=== PATIENT | female | born 1940 | race Caucasian/White ===

== ENCOUNTER 2021-09-01 17:43 | Emergency (ER) | payer OTHER, SELFPAY ==
[~2021-09-01] VITALS: Ht 154.9 cm; Wt 71.7 kg
[~2021-09-01 17:43] MED LIST: DIGO-31 PO; MULTAQ PO; PANT40TA45 PO; POTA20TA34 PO; RANI150T8 PO; SOTOLOL PO; TRIA1CAP2 PO; WARF7.5T49 PO
[2021-09-01 18:03] VITALS: BP_SYST 101
--- NOTE | 2021-09-01 18:06 | NUR ---
Patient triaged and placed in tent area. VSS and patient appears in no acute distress at this time. Accompanied by daughter, awaiting available bed, and MD notified of need for MSE.
[2021-09-01] MEDS ORDERED: ONDANSETRON HCL 4 MG/2 ML VIAL IVP ONE ×2 (18:45→21:45)
[2021-09-01] MEDS ORDERED: NACL 0.9% 1,000 ML IV ONE (18:45)
[2021-09-01 19:47] LABS: BASOPHILS % (AUTO) 0.5 % (0.0-2.0); EOSINOPHILS # (AUTO) 0.1 K/uL (0.0-0.4); EOSINOPHILS % (AUTO) 1.9 % (0.0-4.0); HEMATOCRIT 44.2 % (36-48); HEMOGLOBIN 14.9 g/dL (12.0-16.0); LYMPHOCYTES # (AUTO) 1.1 K/uL (1.0-5.5); LYMPHOCYTES % (AUTO) 16.5 % (20.5-51.5); MEAN CORPUSCULAR HEMOGLOBIN 32 pg (27-31); MEAN CORPUSCULAR HGB CONC 34 % (32-36); MEAN CORPUSCULAR VOLUME 94 fL (79.0-98.0); MONOCYTES # (AUTO) 0.6 K/uL (0.0-1.0); MONOCYTES % (AUTO) 8.7 % (1.7-9.3); NEUTROPHILS # (AUTO) 4.9 K/uL (1.8-7.7); NEUTROPHILS % (AUTO) 72.4 % (40.0-70.0); PLATELET COUNT (AUTO) 131 K/uL (130-430); WHITE BLOOD COUNT (AUTO) 6.8 K/uL (4.8-10.8)
--- NOTE | 2021-09-01 19:58 | NUR ---
urine collected and sent to lab
[2021-09-01 19:59] LABS: ANION GAP 9 (5-15); CALCIUM 9.6 mg/dL (8.4-11.0); CHLORIDE 100 mmol/L (98-107); CREATININE 1.07 mg/dL (0.55-1.30); GLUCOSE 186 mg/dL (70-99); POTASSIUM 4.1 mmol/L (3.5-5.1); SODIUM SERUM 135 mmol/L (136-145); UREA NITROGEN, BLOOD 29 mg/dL (8-21)
--- NOTE | 2021-09-01 20:00 | NUR ---
Patient to bed 2 for evaluation. Hooked to senior materials planner for close monitoring
[2021-09-01 20:02] LABS: ALANINE AMINOTRANSFERASE 55 U/L (12-78); ALBUMIN 3.8 g/dL (3.4-4.8); ASPARTATE AMINOTRANSFERASE 56 U/L (10-37); TOTAL BILIRUBIN 0.6 mg/dL (0.0-1.0)
[2021-09-01] MEDS ORDERED: IOHEXOL 350 mgI/mL, 150 ML INFUS..BTL IV ONE (20:08)
--- NOTE | 2021-09-01 20:15 | NUR ---
MD DONATO in to see patient
--- NOTE | 2021-09-01 20:20 | NUR ---
# 20 gauge angiocath placed to RH. Use of asceptic technique. Opsite placed over site. Blood return noted. Blood for lab drawn from site. Flushed with 10 cc of normal saline. No evidence of infiltration noted. Patient tolerated well.
[2021-09-01] MEDS ORDERED: DEXAMETHASONE SOD PHOSPHATE 4 MG/ML VIAL IVP ONE (20:45)
[2021-09-01] MEDS ORDERED: DIPHENHYDRAMINE INJ 50 MG/ML VIAL IVP ONE (20:45)
--- NOTE | 2021-09-01 20:50 | NUR ---
# 20 gauge angiocath placed to LEFT FA. Use of asceptic technique. Opsite placed over site. Blood return noted. Flushed with 10 cc of normal saline. No evidence of infiltration noted. Patient tolerated well.
[2021-09-01] MEDS ORDERED: PROCHLORPERAZINE EDISYLATE 10 MG/2 ML VIAL IVP ONE (21:45)
--- NOTE | 2021-09-01 23:00 | NUR ---
patient is in CT
--- NOTE | 2021-09-01 23:26 | NUR ---
Patient to be transferred to [facility] . Is being transferred due to higher level of care. Receiving facility has accepting physician and available space. ER physician has signed transfer form. Patient or responsible republican has agreed to transfer and signed form. Patient belongings inventoried and will be sent with patient. Copy of nursing notes, lab reports, EKG, Physicians Orders and X-rays to be sent with patient. Report called to Laron Sarkar at receiving facility. Receiving physician is Dr. Morales. ambulance service has been called for transfer. .
--- NOTE | 2021-09-01 23:34 | NUR ---
[facility] to the hosptal without the CTA images. ER MD caesar robles is aware.
[2021-09-01 23:35] VITALS: BP_SYST 101
== END 2021-09-01 23:34 | disposition short-term general hospital (02) ==
LOC: SED 17:43
DX: R42 Dizziness and giddiness (principal); R11.0 Nausea; I48.91 Unspecified atrial fibrillation; Z88.0 Allergy status to penicillin; Z88.8 Allergy status to other drugs, medicaments and biological substances; Z79.899 Other long term (current) drug therapy
CPT/HCPCS: 36415; 70450; 70460; 70496; 70498; 76376; 80053; 82962; 85025; 93005; 96361; 96374; 96375; 96376; 99285; J0780; J1100; J1200; J2405; J7030; Q9967

== ENCOUNTER 2023-12-24 06:50 | Inpatient (IN) | payer OTHER ==
[~2023-12-24] VITALS: Ht 154.9 cm; Wt 78.9 kg
[2023-12-24 06:58] VITALS: BP_SYST 109; PULSE 142; RESP 20; TEMP 98.4; O2SAT 95
[2023-12-24] MEDS ORDERED: MAGN250T10 PO (07:31)
[2023-12-24] MEDS ORDERED: POTA20PA30 PO (07:31)
[2023-12-24] MEDS ORDERED: MULT1CAP34 PO (07:31)
[2023-12-24] MEDS ORDERED: FAMO40TA7 PO (07:31)
[2023-12-24] MEDS ORDERED: BIOT1CAP3 PO (07:31)
[2023-12-24] MEDS ORDERED: APIX5TAB PO (07:31)
[2023-12-24] MEDS ORDERED: RABE20TA32 PO (07:31)
[2023-12-24] MEDS ORDERED: METO-542 PO (07:31)
[2023-12-24] MEDS ORDERED: SIMV-341 PO (07:31)
[2023-12-24] MEDS ORDERED: ASCO500C18 PO (07:31)
[2023-12-24] MEDS ORDERED: ALLO100T PO (07:31)
[2023-12-24] MEDS ORDERED: FURO-149 PO (07:31)
[2023-12-24] MEDS ORDERED: NEU100 PO (07:31)
[2023-12-24 08:04] LABS: BASOPHILS # (AUTO) 0.1 K/uL (0.0-0.2)
[2023-12-24 08:12] LABS: ANION GAP 10 (5-15); CALCIUM 9.4 mg/dL (8.4-11.0); CARBON DIOXIDE 28 mmol/L (23-29); CHLORIDE 102 mmol/L (98-107); CREATININE 1.74 mg/dL (0.55-1.30); GLUCOSE 151 mg/dL (74-106); POTASSIUM 4.9 mmol/L (3.5-5.1); SODIUM SERUM 140 mmol/L (136-145); UREA NITROGEN, BLOOD 31 mg/dL (8-21)
[2023-12-24 08:18] LABS: ALANINE AMINOTRANSFERASE 49 U/L (12-78); ALBUMIN 2.8 g/dL (3.4-4.8); ASPARTATE AMINOTRANSFERASE 55 U/L (10-37); BILIRUBIN,DIRECT 0.5 mg/dL (0.0-0.3); INR 1.2 (0.8-1.2); PROTHROMBIN TIME 12.6 SECS (9.5-12.5); TOTAL BILIRUBIN 1.5 mg/dL (0.0-1.0); TOTAL PROTEIN, SERUM 7.8 g/dL (6.4-8.3)
[2023-12-24 08:19] LABS: BASOPHILS % (AUTO) 0.5 % (0.0-2.0); EOSINOPHILS # (AUTO) 0.1 K/uL (0.0-0.4); EOSINOPHILS % (AUTO) 0.5 % (0.0-4.0); HEMATOCRIT 49.8 % (36-48); HEMOGLOBIN 16.4 g/dL (12.0-16.0); LYMPHOCYTES # (AUTO) 0.5 K/uL (1.0-5.5); LYMPHOCYTES % (AUTO) 1.6 % (20.5-51.5); MEAN CORPUSCULAR HEMOGLOBIN 33 pg (27-31); MEAN CORPUSCULAR HGB CONC 33 % (32-36); MEAN CORPUSCULAR VOLUME 99 fL (79.0-98.0); MONOCYTES # (AUTO) 0.8 K/uL (0.0-1.0); NEUTROPHILS # (AUTO) 26.3 K/uL (1.8-7.7); NEUTROPHILS % (AUTO) 94.4 % (40.0-70.0); PLATELET COUNT (AUTO) 251 K/uL (130-430); RED BLOOD CELL COUNT(AUTO) 5.03 MIL/uL (4.2-6.2); RED CELL DISTRIBUTION WIDTH 14.6 % (9.0-15.0); WHITE BLOOD COUNT (AUTO) 27.8 K/uL (4.8-10.8)
[2023-12-24 08:20] LABS: BILIRUBIN,URINE 1+ (NEGATIVE); BLOOD, URINE NEGATIVE (NEGATIVE); CLARITY/URINE CLEAR (CLEAR); COLOR,URINE YELLOW (YELLOW); GLUCOSE,URINE NEGATIVE (NEGATIVE); KETONES,URINE 1+ (NEGATIVE); LEUKOCYTE ESTERASE ,URINE NEGATIVE (NEGATIVE); NITRITE, URINE NEGATIVE (NEGATIVE); PH,URINE 5.5 (5.0-8.0); PROTEIN URINE NEGATIVE (NEGATIVE); UROBILINOGEN,URINE 0.2 (0.2-1.0)
[2023-12-24] MEDS: dilTIAZem HCL IVP 5 MG/ML VIAL IVP ONE (08:36)
[2023-12-24] MEDS: NACL 0.9% 1,000 ML IV ONE ×2 (08:37→08:54)
[2023-12-24] MEDS: 0.45% NACL 1,000 ML IV SCH (11:00)
[2023-12-24] MEDS ORDERED: CALC-823 PO (13:28)
[2023-12-24] MEDS ORDERED: TURM1TAB2 PO (13:28)
[2023-12-24] MEDS: ALBUMIN HUMAN 25% 200 ML IV ONE (14:15)
[2023-12-25] VITALS (8 sets, daily range): BP systolic 111–139; PULSE 116–123; RESP 19–20; TEMP 97.2–98.5; O2SAT 95–99
[2023-12-25 08:40] LABS: BASOPHILS % (AUTO) 0.2 % (0.0-2.0); EOSINOPHILS # (AUTO) 0.4 K/uL (0.0-0.4); EOSINOPHILS % (AUTO) 3.7 % (0.0-4.0); HEMOGLOBIN 13.5 g/dL (12.0-16.0); LYMPHOCYTES # (AUTO) 1.2 K/uL (1.0-5.5); LYMPHOCYTES % (AUTO) 9.9 % (20.5-51.5); MEAN CORPUSCULAR HEMOGLOBIN 33 pg (27-31); MEAN CORPUSCULAR HGB CONC 33 % (32-36); MEAN CORPUSCULAR VOLUME 100 fL (79.0-98.0); MONOCYTES # (AUTO) 0.5 K/uL (0.0-1.0); MONOCYTES % (AUTO) 4.4 % (1.7-9.3); NEUTROPHILS % (AUTO) 81.8 % (40.0-70.0); PLATELET COUNT (AUTO) 136 K/uL (130-430); RED CELL DISTRIBUTION WIDTH 14.8 % (9.0-15.0)
[2023-12-25 08:41] LABS: WHITE BLOOD COUNT (AUTO) 12.2 K/uL (4.8-10.8)
[2023-12-25 08:59] LABS: ANION GAP 8 (5-15); CALCIUM 8.7 mg/dL (8.4-11.0); CARBON DIOXIDE 26 mmol/L (23-29); CHLORIDE 106 mmol/L (98-107); CREATININE 0.97 mg/dL (0.55-1.30); GLUCOSE 107 mg/dL (74-106); POTASSIUM 3.9 mmol/L (3.5-5.1); SODIUM SERUM 140 mmol/L (136-145); UREA NITROGEN, BLOOD 24 mg/dL (8-21)
[2023-12-25 09:06] LABS: ALANINE AMINOTRANSFERASE 32 U/L (12-78); ALBUMIN 2.8 g/dL (3.4-4.8); ASPARTATE AMINOTRANSFERASE 39 U/L (10-37); TOTAL BILIRUBIN 1.9 mg/dL (0.0-1.0); TOTAL PROTEIN, SERUM 6.7 g/dL (6.4-8.3)
[2023-12-25 09:26] LABS: LIPASE 440 U/L (16-77)
[2023-12-25] MEDS: GABAPENTIN 100 MG CAPSULE PO SCH (12:50)
[2023-12-25] MEDS: SIMVASTATIN 10 MG TABLET PO SCH (12:50)
[2023-12-25] MEDS: METOPROLOL SUCCINATE 50 MG TAB.SR.24H (TOPROL XL) PO SCH (12:51)
[2023-12-25] MEDS: ALLOPURINOL 100 MG TABLET (ZYLOPRIM) PO SCH (12:52)
[2023-12-25] MEDS: APIXABAN 2.5 MG TABLET PO SCH (12:52)
[2023-12-25] MEDS: FUROSEMIDE 20 MG/2 ML VIAL IVP ONE (16:48)
[2023-12-25] MEDS: levalbuterol HCL 0.63 MG/3 ML VIAL.NEB INH SCH (23:24)
[2023-12-26] VITALS (9 sets, daily range): BP systolic 116–137; PULSE 90–112; RESP 17–18; TEMP 97.6–98.5; O2SAT 96–98
[2023-12-26 06:17] LABS: BASOPHILS % (AUTO) 0.2 % (0.0-2.0); EOSINOPHILS # (AUTO) 0.5 K/uL (0.0-0.4); HEMATOCRIT 40.8 % (36-48); HEMOGLOBIN 13.8 g/dL (12.0-16.0); LYMPHOCYTES # (AUTO) 1.2 K/uL (1.0-5.5); LYMPHOCYTES % (AUTO) 13.5 % (20.5-51.5); MEAN CORPUSCULAR HEMOGLOBIN 33 pg (27-31); MEAN CORPUSCULAR HGB CONC 34 % (32-36); MEAN CORPUSCULAR VOLUME 98 fL (79.0-98.0); MONOCYTES # (AUTO) 0.5 K/uL (0.0-1.0); NEUTROPHILS # (AUTO) 6.8 K/uL (1.8-7.7); NEUTROPHILS % (AUTO) 75.3 % (40.0-70.0); PLATELET COUNT (AUTO) 152 K/uL (130-430); RED BLOOD CELL COUNT(AUTO) 4.15 MIL/uL (4.2-6.2); RED CELL DISTRIBUTION WIDTH 14.4 % (9.0-15.0); WHITE BLOOD COUNT (AUTO) 9.1 K/uL (4.8-10.8)
[2023-12-26 06:44] LABS: ANION GAP 8 (5-15); CALCIUM 9.2 mg/dL (8.4-11.0); CARBON DIOXIDE 28 mmol/L (23-29); CHLORIDE 107 mmol/L (98-107); GLUCOSE 110 mg/dL (74-106); POTASSIUM 3.6 mmol/L (3.5-5.1); SODIUM SERUM 143 mmol/L (136-145); UREA NITROGEN, BLOOD 18 mg/dL (8-21)
[2023-12-26] MEDS: FUROSEMIDE 20 MG/2 ML VIAL IVP ONE (17:48)
[2023-12-26] MEDS: BUDESONIDE 0.5 MG/2 ML AMPUL.NEB INH SCH (21:00)
[2023-12-27] VITALS (10 sets, daily range): BP systolic 115–138; PULSE 80–94; RESP 18–20; TEMP 96.1–97.8; O2SAT 92–100
[2023-12-27 06:11] LABS: BASOPHILS % (AUTO) 0.5 % (0.0-2.0); EOSINOPHILS # (AUTO) 0.5 K/uL (0.0-0.4); EOSINOPHILS % (AUTO) 6.5 % (0.0-4.0); HEMATOCRIT 43.7 % (36-48); HEMOGLOBIN 14.7 g/dL (12.0-16.0); LYMPHOCYTES # (AUTO) 1.4 K/uL (1.0-5.5); LYMPHOCYTES % (AUTO) 19.2 % (20.5-51.5); MEAN CORPUSCULAR HEMOGLOBIN 33 pg (27-31); MEAN CORPUSCULAR HGB CONC 34 % (32-36); MEAN CORPUSCULAR VOLUME 98 fL (79.0-98.0); MONOCYTES # (AUTO) 0.5 K/uL (0.0-1.0); MONOCYTES % (AUTO) 6.7 % (1.7-9.3); NEUTROPHILS # (AUTO) 4.9 K/uL (1.8-7.7); NEUTROPHILS % (AUTO) 67.1 % (40.0-70.0); PLATELET COUNT (AUTO) 165 K/uL (130-430); RED BLOOD CELL COUNT(AUTO) 4.44 MIL/uL (4.2-6.2); WHITE BLOOD COUNT (AUTO) 7.4 K/uL (4.8-10.8)
[2023-12-27 06:27] LABS: ANION GAP 9 (5-15); CALCIUM 9.5 mg/dL (8.4-11.0); CARBON DIOXIDE 30 mmol/L (23-29); CHLORIDE 105 mmol/L (98-107); GLUCOSE 104 mg/dL (74-106); POTASSIUM 3.6 mmol/L (3.5-5.1); SODIUM SERUM 144 mmol/L (136-145); UREA NITROGEN, BLOOD 19 mg/dL (8-21)
[2023-12-27] MEDS: FUROSEMIDE 20 MG/2 ML VIAL IVP SCH (10:26)
[2023-12-28] VITALS (12 sets, daily range): BP systolic 105–133; PULSE 63–95; RESP 16–20; TEMP 96.8–97.8; O2SAT 93–99
[2023-12-28] MEDS ORDERED: LEVO750T64 PO (10:20)
[2023-12-28] MEDS: DOCUSATE SODIUM 100 MG CAPSULE PO PRN (16:39)
[2023-12-29] VITALS (9 sets, daily range): BP systolic 116–140; PULSE 89–104; RESP 16–18; TEMP 96.4–97.8; O2SAT 96–98
[2023-12-30] VITALS (8 sets, daily range): BP systolic 117–125; PULSE 85–99; RESP 16; TEMP 97–98.2; O2SAT 94–97
[2023-12-30 07:19] LABS: BASOPHILS % (AUTO) 0.5 % (0.0-2.0); EOSINOPHILS # (AUTO) 0.4 K/uL (0.0-0.4); EOSINOPHILS % (AUTO) 5.1 % (0.0-4.0); HEMATOCRIT 45.3 % (36-48); HEMOGLOBIN 15.1 g/dL (12.0-16.0); LYMPHOCYTES # (AUTO) 1.8 K/uL (1.0-5.5); LYMPHOCYTES % (AUTO) 24.8 % (20.5-51.5); MEAN CORPUSCULAR HEMOGLOBIN 33 pg (27-31); MEAN CORPUSCULAR HGB CONC 33 % (32-36); MEAN CORPUSCULAR VOLUME 99 fL (79.0-98.0); MONOCYTES # (AUTO) 0.7 K/uL (0.0-1.0); MONOCYTES % (AUTO) 9.5 % (1.7-9.3); NEUTROPHILS # (AUTO) 4.4 K/uL (1.8-7.7); NEUTROPHILS % (AUTO) 60.1 % (40.0-70.0); PLATELET COUNT (AUTO) 151 K/uL (130-430); RED BLOOD CELL COUNT(AUTO) 4.59 MIL/uL (4.2-6.2); RED CELL DISTRIBUTION WIDTH 14.2 % (9.0-15.0); WHITE BLOOD COUNT (AUTO) 7.4 K/uL (4.8-10.8)
[2023-12-30 07:37] LABS: ALANINE AMINOTRANSFERASE 27 U/L (12-78); ALBUMIN 2.7 g/dL (3.4-4.8); ANION GAP 5 (5-15); ASPARTATE AMINOTRANSFERASE 28 U/L (10-37); CALCIUM 9.5 mg/dL (8.4-11.0); CARBON DIOXIDE 33 mmol/L (23-29); CHLORIDE 104 mmol/L (98-107); CREATININE 0.87 mg/dL (0.55-1.30); GLUCOSE 110 mg/dL (74-106); POTASSIUM 3.7 mmol/L (3.5-5.1); SODIUM SERUM 142 mmol/L (136-145); TOTAL BILIRUBIN 0.9 mg/dL (0.0-1.0); TOTAL PROTEIN, SERUM 7.2 g/dL (6.4-8.3); UREA NITROGEN, BLOOD 27 mg/dL (8-21)
[2023-12-30] MEDS: FUROSEMIDE 20 MG TABLET PO SCH (10:10)
== END 2023-12-30 19:15 | disposition home health service (06) | DRG 871 ==
LOC: SED 06:50 → STU 09:55
PROVIDERS: ADMIT Internal Medicine; ATTEND Internal Medicine
DX: A41.9 Sepsis, unspecified organism (principal); E43 Unspecified severe protein-calorie malnutrition; J18.9 Pneumonia, unspecified organism; N17.9 Acute kidney failure, unspecified; I48.20 Chronic atrial fibrillation, unspecified; K74.60 Unspecified cirrhosis of liver; K21.9 Gastro-esophageal reflux disease without esophagitis; M10.9 Gout, unspecified; Z20.822 Contact with and (suspected) exposure to COVID-19; J98.01 Acute bronchospasm; Z88.0 Allergy status to penicillin; Z88.8 Allergy status to other drugs, medicaments and biological substances; Z91.041 Radiographic dye allergy status; Z79.899 Other long term (current) drug therapy; Z79.01 Long term (current) use of anticoagulants; Z86.73 Personal history of transient ischemic attack (TIA), and cerebral infarction without residual deficits; Z87.440 Personal history of urinary (tract) infections; Z90.710 Acquired absence of both cervix and uterus; Z95.0 Presence of cardiac pacemaker; Z63.4 Disappearance and death of family member
CPT/HCPCS: 36415; 71045; 71270; 80048; 80053; 80076; 81001; 81003; 83605; 83690; 83735; 83880; 84484; 85025; 85610; 85730; 87040; 87081; 87086; 93005; 93306; 94640; 94760; 96365; 96375; 97110-GP; 97116-GP; 97530-GP; 99291; G0378; J1940; J1956; J3490; J7614; J7626